=== PATIENT | male | born 1995 | race African-American/Black ===

== ENCOUNTER 2017-11-30 08:08 | Emergency (ER) | payer SELFPAY ==
[2017-11-30 08:13] VITALS: TEMP 98.8
--- NOTE | 2017-11-30 08:45 | EDPHY ---
H & P Stated Complaint: RIGHT SHOULDER PAIN. FELL DOWN 12 STAIRS. ETOH Time Seen by Provider: 11/30/17 08:41 HPI/ROS: CHIEF COMPLAINT: Right shoulder pain and immobility HISTORY OF PRESENT ILLNESS: The patient presents to the ED with complaints of right shoulder pain and immobility. He reportedly fell on stairs last night. He had been drinking alcohol. The patient denies any acute numbness or weakness. He denies prior history of dislocation. The patient denies any complaints of headache, neck pain, chest pain or difficulty breathing. The patient denies significant past surgical history. The patient reports his pain is moderate in nature and worsened with movement. REVIEW OF SYSTEMS: A comprehensive 10 point review of systems is otherwise negative aside from elements mentioned in the history of present illness. Source: Patient Exam Limitations: No limitations - Personal History Current Tetanus/Diphtheria Vaccine: Yes Current Tetanus Diphtheria and Acellular Pertussis (TDAP): Yes - Medical/Surgical History Hx Asthma: No Hx Chronic Respiratory Disease: No Hx Diabetes: No Hx Cardiac Disease: No Hx Renal Disease: No Hx Cirrhosis: No Hx Alcoholism: No Hx HIV/AIDS: No Hx Splenectomy or Spleen Trauma: No Other PMH: Denies - Social History Smoking Status: Current every day smoker - Physical Exam Exam: General Appearance: Alert, no distress Head: Atraumatic Eyes: Pupils equal, round, reactive ENT, Mouth: No hemotympanum, no oral trauma Neck: Nontender, trachea midline Respiratory: No chest wall tender, subcutaneous air, lungs clear bilaterally Cardiovascular: Regular rate and rhythm Abdomen: Abdomen is soft and nontender, pelvis stable Skin: No lacerations, No abrasion Back: No midline T/L/S pain Extremities: Empty glenohumeral fossa noted on palpation to the right shoulder girdle. Neurological: A&Ox3, normal motor function, normal sensory exam Constitutional: Initial Vital Signs Temperature (C) 37.1 C 11/30/17 08:10 Heart Rate 103 H 11/30/17 08:10 Respiratory Rate 20 11/30/17 08:10 Blood Pressure 124/72 H 11/30/17 08:10 O2 Sat (%) 100 11/30/17 08:10 O2 Delivery Mode Room Air Allergies/Adverse Reactions: No Known Allergies Allergy (Unverified 06/17/16 17:55) Home Medications: Medication Instructions Recorded NK [No Known Home Meds] 06/17/16 Medical Decision Making - Diagnostics Imaging Results: Imaging Impressions Shoulder X-Ray 11/30/17 08:43 Impression: 1. Anterior dislocation right humeral head. AP shoulder x-ray: Images reviewed by myself, anterior shoulder dislocation is noted. Post reduction two-view shoulder x-ray: Images reviewed by myself, reduction of previously noted shoulder dislocation present. No evidence of obvious fracture or additional injury noted Procedures: Procedure: Dislocation reduction of right anterior shoulder dislocation Indication: Dislocation The shoulder was reduced in the usual fashion without complications. Post reduction the patient's neurovascular exam is normal. Post reduction x-ray demonstrates reduction of the joint to the anatomic position. The procedure was performed by myself. ED Course/Re-evaluation: The patient presents to the emergency department with acute right shoulder pain secondary to a glenohumeral dislocation. The patient had his shoulder reduced without complication by myself using the Hilliard technique. The patient has been placed in a sling. The patient will be referred to our on-call orthopedic surgeon for further evaluation. Plan for ice and NSAIDs as an outpatient. Differential Diagnosis: Differential diagnosis considered includes fracture, sprain, dislocation, neurovascular injury - Data Points Medications Given: Discontinued Medications Ibuprofen (Motrin) 600 mg PO EDNOW ONE Stop: 11/30/17 09:04 Last Admin: 11/30/17 09:06 Dose: 600 mg Departure - Departure Disposition: Home, Routine, Self-Care Clinical Impression: Shoulder dislocation Condition: Good Instructions: Shoulder Dislocation (ED) Additional Instructions: 1. Take Ibuprofen or Motrin 600 mg by mouth three times a day. 2. Ice as directed 3. Please wear sling as needed for comfort 4. Please follow up with the orthopedic surgeon you have been referred to for a recheck of your shoulder in the next week. Referrals: Fredrick Lewis MD [Medical Doctor] - As per Instructions
[2017-11-30] MEDS ORDERED: IBUPROFEN 600 MG TAB PO ONE (09:03)
[2017-11-30 09:58] VITALS: BP 139/66; PULSE 77; RESP 16; O2SAT 99
== END 2017-11-30 09:58 | disposition home or self-care (01) ==
DX: S43.014A Anterior dislocation of right humerus, initial encounter (principal); F17.200 Nicotine dependence, unspecified, uncomplicated; W10.9XXA Fall (on) (from) unspecified stairs and steps, initial encounter
CPT/HCPCS: A4565

== ENCOUNTER 2017-12-15 06:55 | Emergency (ER) | payer SELFPAY ==
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
[2017-12-15 07:05] VITALS: PULSE 80
[2017-12-15 07:53] LABS: PLATELET COUNT 221 10^3/uL (150-400)
[2017-12-15 11:27] VITALS: BP 105/69; RESP 18; TEMP 98.4; O2SAT 96
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
== END 2017-12-15 11:25 | disposition home or self-care (01) ==
LOC: EDUNIT#
DX: S09.90XA Unspecified injury of head, initial encounter (principal); F10.920 Alcohol use, unspecified with intoxication, uncomplicated; F17.200 Nicotine dependence, unspecified, uncomplicated; Y09 Assault by unspecified means
CPT/HCPCS: G0480